=== PATIENT | male | born 1985 ===

== ENCOUNTER 2018-11-10 01:56 | Inpatient (IN) | payer MEDICAID ==
--- NOTE | 2018-11-10 02:41 | ED PDOC ---
Arrival/HPI - General Chief Complaint: Psychiatric Evaluation Time Seen by Provider: 11/10/18 01:58 Historian: Patient - History of Present Illness Narrative History of Present Illness (Text): 11/10/18 02:40 A 33 year old male with no significant past medical history, who presents to the ED for pain and swelling in left hand after he punched a wall in anger. Patient notes that he found out his girlfriend was cheating on him. Patient expresses suicidal and homicidal ideation. He notes that he wants to shoot himself with a gun. Patient denies fevers, chills, headache, dizziness, chest pain, shortness of breath, dyspnea on exertion, cough, abdominal pain, nausea, vomiting, diarrhea, back pain, neck pain, urinary/bowel changes, or any other complaint. Time/Duration: 1-3 hours Symptom Onset: Gradual Symptom Course: Unchanged Activities at Onset: Emotional Upset Context: Home Past Medical History - Provider Review Nursing Documentation Reviewed: Yes - Psychiatric Hx Psychophysiologic Disorder: Yes Hx Depression: Yes Hx Substance Use: Yes Family/Social History - Physician Review Nursing Documentation Reviewed: Yes Family/Social History: Unknown Family HX Smoking Status: Heavy Smoker > 10 Cigarettes Daily Hx Alcohol Use: No Hx Substance Use: Yes Substance used: meth Allergies/Home Meds Allergies/Adverse Reactions: Allergies No Known Allergies Allergy (Verified 11/10/18 13:24) Home Medications: Home Meds Medication Instructions Recorded Confirmed QUEtiapine [SEROquel] 50 mg PO DAILY 11/11/18 11/11/18 Review of Systems - Physician Review All systems were reviewed & negative as marked: Yes - Review of Systems Constitutional: absent: Fevers Neurological: absent: Headache Physical Exam - Physical Exam Narrative Physical Exam (Text): 11/10/18 02:45 Constitutional: No acute distress. Head: Normocephalic. Atraumatic. Eyes: PERRL. ENT: Moist mucous membranes. Neck: Supple. Cardiovascular: Regular rate. Chest: No tenderness. Respiratory: Clear to auscultation bilaterally. GI: Soft. Nontender. Nondistended. Back: No CVA tenderness. Musculoskeletal: Edema in second and third MCP Skin: No rash. Neurologic: Alert, no focal deficit. Vital Signs Reviewed: Yes Vital Signs Temp Pulse Resp BP Pulse Ox 11/10/18 02:16 97.5 F L 86 18 102/77 100 Temperature: Afebrile Blood Pressure: Normal Pulse: Regular Respiratory Rate: Normal Appearance: Positive for: Well-Appearing, Non-Toxic, Comfortable Pain Distress: Mild Mental Status: Positive for: Alert and Oriented X 3 Medical Decision Making ED Course and Treatment: 11/10/18 02:49 Impression: 33 year old male who presents to the ED for pain and swelling in the left hand expressing suicidal/homicidal ideation. Plan: -- EKG -- Labs -- Chest X-ray -- Left Hand X-ray -- Urinalysis -- Reassess and disposition Prior Visits: Notes and results from previous visits were reviewed. Progress Notes: EKG: NSR at [address] wave changes. 11/10/18 03:45 Left Hand X-ray reviewed, shows no fracture. - RAD Interpretation Radiology Orders: 11/10/18 02:21 HAND LEFT 3 VIEWS ROUTINE [RAD] Stat 11/10/18 02:22 CHEST PORTABLE [RAD] Stat - Scribe Statement The provider has reviewed the documentation as recorded by the Patricia Carr training under Bonny Garduno Provider Scribe Attestation: All medical record entries made by the Scribe were at my direction and personally dictated by me. I have reviewed the chart and agree that the record accurately reflects my personal performance of the history, physical exam, medical decision making, and the department course for this patient. I have also personally directed, reviewed, and agree with the discharge instructions and disposition. Disposition/Present on Arrival - Present on Arrival Any Indicators Present on Arrival: No History of DVT/PE: No History of Uncontrolled Diabetes: No Urinary Catheter: No History of Decub. Ulcer: No History Surgical Site Infection Following: None - Disposition Have Diagnosis and Disposition been Completed?: Yes Diagnosis: Depression Disposition: HOSPITALIZED Disposition Time: 07:00 Patient Plan: Admission Condition: GUARDED
[2018-11-10 02:47] LABS: ACETAMINOPHEN < 10.0 ug/ml (10.0-20.0); ALT/SGPT 27 U/L (7-56); AST/SGOT 33 U/L (17-59); BLOOD UREA NITROGEN 20 mg/dL (7-21); CALCIUM 8.9 mg/dL (8.4-10.5); GFR NON-AFRICAN AMERICAN > 60; SALICYLATE < 1 mg/dL (2.0-20.0)
[2018-11-10 03:01] LABS: BASO # 0.03 K/mm3 (0.0-2.0); BASO % 0.3 % (0.0-3.0); EOS # 0.3 (0.0-0.7); EOS % 3.3 % (1.5-5.0); LYMPH % 28.7 % (22.0-35.0); MEAN CELL VOLUME 91.4 fl (80.0-105.0); MEAN CORPUSCULAR HEMOGLOBIN 30.5 pg (25.0-35.0); MEAN CORPUSCULAR HGB CONC 33.4 g/dl (31.0-37.0); MEAN PLATELET VOLUME 9.4 fl (7.0-11.0); MONO # 0.9 (0.1-0.6); MONO % 8.3 % (1.0-6.0); RBC 4.91 10^6/uL (3.5-6.1); RED CELL DISTRIBUTION WIDTH 13.8 % (11.5-14.5); WHITE BLOOD COUNT 10.4 10^3/uL (4.5-11.0)
[2018-11-10 04:23] LABS: URINE BILIRUBIN NEGATIVE (NEGATIVE); URINE BLOOD NEGATIVE (NEGATIVE); URINE GLUCOSE (UA) NEGATIVE (NEGATIVE); URINE LEUKOCYTE ESTERASE NEGATIVE Leu/uL (NEGATIVE); URINE PROTEIN TRACE mg/dL (<30 mg/dL)
[2018-11-10 04:24] LABS: URINE APPEARANCE CLEAR (CLEAR); URINE COLOR YELLOW (YELLOW)
[2018-11-10 04:29] LABS: URINE BACTERIA FEW /hpf; URINE EPITHELIAL CELLS 0 - 2 /hpf (0-5); URINE WBC 0 - 2 /hpf (0-6)
[2018-11-10 04:48] LABS: BARBITURATES, UR NEGATIVE (NEGATIVE)
[2018-11-10 05:03] LABS: BENZODIAZEPINES, UR POSITIVE (NEGATIVE); OPIATES, UR NEGATIVE (NEGATIVE); PHENCYCLIDINE, UR POSITIVE (NEGATIVE)
[2018-11-10] MEDS ORDERED: DiphenhydrAMINE 50 mg/ml Inj IM PRN (10:23)
[2018-11-10] MEDS ORDERED: Alum-Mag Hydrox-Simethicone Susp (30 mL) PO PRN (10:25)
--- NOTE | 2018-11-10 11:04 | RAD ---
Date of service: 11/10/2018 PROCEDURE: CHEST RADIOGRAPH, 1 VIEW HISTORY: si/hi COMPARISON: None available. FINDINGS: LUNGS: Clear. PLEURA: No pneumothorax or pleural fluid seen. CARDIOVASCULAR: No aortic atherosclerotic calcification present. Normal. OSSEOUS STRUCTURES: No significant abnormalities. VISUALIZED UPPER ABDOMEN: Normal. OTHER FINDINGS: None. IMPRESSION: No active disease.
--- NOTE | 2018-11-10 12:29 | RAD ---
PROCEDURE: Left Hand Radiographs. HISTORY: hand pain, punched wall COMPARISON: None. TECHNIQUE: Four views obtained. FINDINGS: BONES: Normal. No fracture. JOINTS: Normal. No osteoarthritic changes. SOFT TISSUES: Normal. OTHER FINDINGS: None. IMPRESSION: Normal left hand radiographs.
--- NOTE | 2018-11-10 17:36 | CARD ---
APPROVED REPORT Date of service: 11/10/2018 EKG Measurement Heart [id number] <Conclusion> Normal sinus rhythm Early reporlarization pattern; a normal variant Normal ECG
[2018-11-10 21:23] VITALS: O2SAT 95
[2018-11-10 21:24] VITALS: BMI 26.4
[2018-11-10] MEDS ORDERED: QUEtiapine 150 mg XR Tab PO SCH (22:00)
[2018-11-10] MEDS: QUEtiapine 50 mg XR Tab PO SCH (23:08)
--- NOTE | 2018-11-11 16:08 | PCM.PSYCH ---
Initial Psychiatric Evaluation - Initial Psychiatric Evaluation Type of Admission: Voluntary Legal Status: Capacity Chief Complaint (in patient's own words): "I do not even remember how I ended up here" Patient's Reaction to Hospitalization: Patient was admitted for evaluation of depressive symptoms and possible suicidal ideation. History of Present Illness and Precipitating Events: Shortly, pt is a 33 year old male with history of polysubstance abuse and dependence, follow-up possible antisocial personality disorder, patient has history of being admitted to the psychiatric inpatient unit most recently was in [facility], patient was discharged on 11/04/2018, patient has history of not compliant with her medications and follow-up appointments, stronger antisocial personality disorder, history of incarcerations and arrests, in the emergency room verbalized thoughts of harming himself with a plan to gunshot himself, patient required further evaluation, stabilization, medications adjustment. Patient was seen and examined at the treatment team meeting, patient presented to be drowsy, seems to be poor and unreliable historian, poor personal hygiene, fair ADLs, has scratches on his neck and patient complaining of pain on his left wrist status post punching a wall (x-ray of the hand done 11/09/2018. Patient seems to be unreliable historian, reported that she does not remember how he ended up here in the hospital, orders being not depressed, patient denied thoughts of harming himself or others, denied any psychotic symptoms, but based on RN report voices were male and say theyre gonna come get me. . Patient requested to be discharged immediately, patient submitted 48-hour notice. In the emergency room patient reported that he found out that his girlfriend was cheating on him, when this senior mortgage underwriter asked him today patient said "it was opposite, I cheated on her", she does not remember his statement about his gunshot, patient said "I was intoxicated, I do not even remember saying things". Patient denied any access to the guns. Urine drug screen was positive for PCP, cocaine, marijuana, benzos. Patient required Haldol and Ativan to be given to him overnight. Patient denies smoking. Past psychiatric history: Patient was discharged from [facility] 11/04/18, patient has history of being admitted to [facility]. 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 Was prescribed: Divalproex [Depakote DR] 250 mg PO BID #60 tcp Haloperidol [Haldol] 5 mg PO BID #60 tab Medical history: Unknown Family history: Unknown 11/10/18 02:27 11/10/18 02:27 Lab Results 11/10/18 04:08: Urine Opiates Screen Negative, Urine Methadone Screen Negative, Ur Barbiturates Screen Negative, Ur Phencyclidine Scrn Positive H, Ur Amphetamines Screen Negative, U Benzodiazepines Scrn Positive H, U Oth Cocaine Metabols Positive H, U Cannabinoids Screen Positive H 11/10/18 04:08: Urine Color Yellow, Urine Appearance Clear, Urine pH 6.0, Ur Specific [place] >= 1.030, Urine Protein Trace H, Urine Glucose (UA) Negative, Urine Ketones Trace H, Urine Blood Negative, Urine Nitrate Negative, Urine Bilirubin Negative, Urine Urobilinogen 1.0 H, Ur Leukocyte Esterase Negative, Urine RBC None, Urine WBC 0 - 2, Ur Epithelial Cells 0 - 2, Urine Bacteria Few 11/10/18 02:27: Alcohol, Quantitative < 10 11/10/18 02:27: Salicylates < 1 L, Acetaminophen < 10.0 L 11/10/18 02:27: Sodium 142, Potassium 3.8, Chloride 102, Carbon Dioxide 32, Anion Gap 12, BUN 20, Creatinine 1.2, Est GFR ( Amer) > 60, Est GFR (Non- Af Amer) > 60, Random Glucose 85, Calcium 8.9, Total Bilirubin 0.4, AST 33, ALT 27, Alkaline Phosphatase 81, Total Protein 8.0, Albumin 4.0, Globulin 4.0, Albumin/Globulin Ratio 1.0 L 11/10/18 02:27: WBC 10.4, RBC 4.91, Hgb 15.0, Hct 44.9, MCV 91.4, MCH 30.5, MCHC 33.4, RDW 13.8, Plt Count 340, MPV 9.4, Neut % (Auto) 59.4, Lymph % (Auto) 28.7, Bureau % (Auto) 8.3 H, Eos % (Auto) 3.3, Baso % (Auto) 0.3, Lymph # (Auto) 3.0, Bureau # (Auto) 0.9 H, Eos # (Auto) 0.3, Baso # (Auto) 0.03, Absolute Neuts ( auto) 6.19 Vital Signs Temp Pulse Resp BP Pulse Ox 11/11/18 15:54 68 98/61 L 11/11/18 07:00 97.7 F 67 19 105/64 11/10/18 08:15 98.2 F 77 17 119/72 95 11/10/18 07:14 79 18 115/86 98 11/10/18 02:16 97.5 F L 86 18 102/77 100 The patient failed the outpatient lower level of care: Yes Current Medications: Active Medications Generic Name Dose Route Start Last Admin Trade Name Freq PRN Reason Stop Dose Admin Acetaminophen 650 mg 11/10/18 08:51 11/10/18 09:01 Tylenol 325mg Tab PO 650 mg Q6H PRN Administration Pain, moderate (4-7) Al Hydrox/Mg Hydrox/Simethicone 30 ml 11/10/18 10:25 Maalox Plus 30 Ml PO DAILY PRN Indigestion / Heartburn Diphenhydramine HCl 50 mg 11/10/18 08:50 11/10/18 23:09 Benadryl PO 50 mg Q6H PRN Administration Agitation Diphenhydramine HCl 50 mg 11/10/18 10:23 Benadryl IM Q6H PRN Agitation Haloperidol 5 mg 11/10/18 08:50 11/10/18 09:00 Haldol PO 5 mg Q6H PRN Administration Agitation Protocol Haloperidol Lactate 5 mg 11/10/18 10:24 Haldol IM Q6H PRN Agitation Protocol Lorazepam 2 mg 11/10/18 08:49 11/10/18 23:08 Ativan PO 2 mg Q6H PRN Administration Agitation Protocol Lorazepam 2 mg 11/10/18 10:22 Ativan IM Q6H PRN Agitation Protocol Quetiapine Fumarate 50 mg 11/10/18 16:00 11/10/18 17:02 Seroquel PO 50 mg BID SUSHMA Administration Quetiapine Fumarate 100 mg 11/10/18 22:00 11/10/18 23:08 Seroquel Xr PO 100 mg HS SUSHMA Administration Present on Admission - Present on Admission Any Indicators Present on Admission: No Review of Systems - Review of Systems Systems not reviewed;Unavailable: Acuity of Condition - Constitutional Constitutional: As Per HPI - EENT Eyes: As Per HPI Ears: As Per HPI Nose/Mouth/Throat: As Per HPI - Cardiovascular Cardiovascular: As Per HPI - Respiratory Respiratory: As Per HPI - Gastrointestinal Gastrointestinal: As Per HPI - Genitourinary Genitourinary: As Per HPI - Reproductive: Male Reproductive:Male: As Per HPI - Musculoskeletal Musculoskeletal: As Per HPI - Integumentary Integumentary: As Per HPI - Neurological Neurological: As Per HPI - Psychiatric Psychiatric: As Per HPI - Endocrine Endocrine: As Per HPI - Hematologic/Lymphatic Hematologic: As Per HPI Past Patient History - Past Psychiatric History Previous Treatment History: Inpatient Prior Professional Help: See HPI Prior Psychiatric Treatment: See HPI At what hospital: See HPI Duration: See HPI Nature of Treatment: See HPI - PSYCHIATRIC Hx Psychophysiologic Disorder: Yes Hx Depression: Yes Hx Substance Use: Yes - CARDIAC Hx Cardiac Disorders: No Hx Hypertension: No - PULMONARY Hx Tuberculosis: No - NEUROLOGICAL HX Cerebrovascular Accident: No Hx Seizures: No - HEMATOLOGICAL/ONCOLOGICAL Hx Cancer: No Hx Human Immunodeficiency Virus (HIV): No - GENITOURINARY/GYNECOLOGICAL Hx Sexually Transmitted Disorders: No - SURGICAL HISTORY Hx Surgeries: No - Medical/Surgical History Reviewed & confirmed: by nh Meds Allergies/Adverse Reactions: Allergies Allergy/AdvReac Type Severity Reaction Status Date / Time No Known Allergies Allergy Verified 11/10/18 13:24 Mental Status Examination - Personal Presentation Personal Presentation: Looks stated age - Affect Affect: Constricted, Flat - Motor Activity Motor Activity: Psychomotor Retardation - Reliability in Providing Information Reliability in Providing Information: Poor, due to alteration in thoughts, Poor, due to altered mood, Poor, due to cognitve impairment - Mood Mood: Depressed - Formal Thought Process Formal Thought Process: Delusions, Paranoia - Hallucinations/Delusions Delusions: Persecution - Obsessions/Compulsions Obsessions: None Compulsions: None - Cognitive Functions Orientation: Person, Place Sensorium: Alert Abstract Thinking: [place] Estimate of Intelligence: Below average Judgement: Intact, as evidence by: Insight regarding need for hospitalization - Risk Risk: Diminished functioning - Strength & Assets Inventory Strength & Assets Inventory: Cooperative - Limitations Limitations: Other (Chronic noncompliance with her medications and follow-up appointments) Psychiatric Physical Exam - Physical Exam Reviewed and confirmed: Emergency Department Physical Exam Results - Vital Signs Recent Vital Signs: Last Vital Signs Temp 97.7 F 11/11/18 07:00 Pulse 67 11/11/18 07:00 Resp 19 11/11/18 07:00 BP 105/64 11/11/18 07:00 Pulse Ox 95 11/10/18 08:15 - Labs Result Diagrams: 11/10/18 02:27 11/10/18 02:27 - EKG Data EKG Interpreted by: ER Physician DSM Plan - DSM 5 DSM 5 Diagnosis: Bipolar disorder most recent episode mixed severe with psychotic features as per history Cocaine use disorder severe as per history Methamphetamine use disorder severe as per history PCP use disorder moderate as per history Benzodiazepine abuse cannabis abuse - Recommended/Plan of Treatment Treatment Recommendations and Plan of Treatment: Milieu/structure/supportive therapy SW consultation for discharge plan and social issues, possible rehab Med management Seroquel 50 mg twice a day and 100 mg at the nighttime for mood stabilization and psychosis Remeron 15 mg at the nighttime for depression and insomnia Depakote for mood stabilization Family involvement Follow up on labs Will monitor closely Pt was educated about risk/benefits and alternatives of medications, coping strategies (safety plan, suicide prevention), relapse prevention, importance of follow up with psychiatrist and therapist, stay away from drugs/alcohol/smoking Patient submitted 48-hour notice, will consider to screen patient, will follow up closely Projected ELOS: 7 days Prognosis: Guarded Discharge Plan and Discharge Criteria: Patient will pose no imminent danger to self or others, will have safe discharge plan. - Tobacco Cessation Tobacco Use Status for the last 30 days: Non User Tobacco Use Treatment Practical Counseling Provided: No Tobacco Use Treatment FDA-Approved Cessation Medication Provided: No - Alcohol or Substance Abuse Does the patient have an Alcohol or Substance Abuse Disorder: Yes Initial Psych Certification - Initial Certification I certify that the inpatient psychiatric facility admission was medically necessary for either: Treatment which could reasonbly be expected to improve pt's condition I estimate of hospitalization is necessary for proper treatment of the patient: 7 Unit of Time: Days My plans for post-hospital care for this patient are: Inpatient rehab, dual diagnosis program.
[2018-11-11] MEDS: Divalproex 500 mg DR(BID formulation) PO SCH (17:18)
--- NOTE | 2018-11-11 17:54 | PCM.BM ---
<Bambi Amaya - Last Filed: 11/11/18 17:51> Treatment Plan Problems - Problems identified on initial assessmt INEFFECTIVE COPING SKILLS Date Initiated: 11/11/18 Time Initiated: 15:00 Assessment reference: NA Status: Active Priority: 1 HIGH RISK FOR VIOLENCE Date Initiated: 11/11/18 Time Initiated: 15:00 Assessment reference: NA Status: Active Priority: 2 ANXIETY R/T SUBSTANCE ABUSE Date Initiated: 11/11/18 Time Initiated: 15:00 Assessment reference: NA Status: Active Priority: 3 ALTERED THOUGHT PROCESS Date Initiated: 11/11/18 Time Initiated: 15:00 Assessment reference: NA Status: Active Priority: 4 Treatment assets and liabiliti Patient Assests: adapts well, cooperative, ADL independent, cognitively intact Patient Liabilities: financial problems - Milieu Protocol Maintain good personal hygiene: daily Encourage regular showers, daily Remind patient to perform daily oral care, daily Assist patient to perform ADL's Maintain personal safety: every shift Educate patient to report safety concerns to staff, every shift Monitor environment for contraband/sharps Medication safety: Monitor for expected outcome, potential side effects: every shift, Assess barriers to learning: every shift, Assess readiness for medication education: every shift Milieu Narrative: Milieu/structure/supportive therapy SW consultation for discharge plan and social issues, possible rehab Med management Seroquel 50 mg twice a day and 100 mg at the nighttime for mood stabilization and psychosis Remeron 15 mg at the nighttime for depression and insomnia Depakote for mood stabilization Family involvement Follow up on labs Will monitor closely Pt was educated about risk/benefits and alternatives of medications, coping strategies (safety plan, suicide prevention), relapse prevention, importance of follow up with psychiatrist and therapist, stay away from drugs/alcohol/smoking Patient submitted 48-hour notice, will consider to screen patient, will follow up closely Family Contact Family involvement: Famliy/SO not involved Discharge/Continuing Care - Education Needs Education Needs: Patient Medication, Patient Diagnosis/Disease Process, Patient Coping Skills, Patient Placement options, Patient Community resources, Patient Activities of Daily Living, Patient Pain, Patient Nutrition, Patient Health Practices/Safety, Patient Personal Hygiene/Grooming, Patient Aftercare Safety Plan - Discharge Discharge Criteria: Tolerates medication w/o severe side effects, Free of Suicidal thoughts, Free of paranoid thoughts, Free of agitation, Ability to care for self, No longer exhibiting s/s of withdrawal, Reduction of target symptoms Discharge to:: Home - Treatment Team Participation Patient/Family/SO Statement: Milieu/structure/supportive therapy SW consultation for discharge plan and social issues, possible rehab Med management Seroquel 50 mg twice a day and 100 mg at the nighttime for mood stabilization and psychosis Remeron 15 mg at the nighttime for depression and insomnia Depakote for mood stabilization Family involvement Follow up on labs Will monitor closely Pt was educated about risk/benefits and alternatives of medications, coping strategies (safety plan, suicide prevention), relapse prevention, importance of follow up with psychiatrist and therapist, stay away from drugs/alcohol/smoking Patient submitted 48-hour notice, will consider to screen patient, will follow up closely <Saundra James - Last Filed: 11/12/18 10:32> Treatment Plan Problems - Problems identified on initial assessmt INEFFECTIVE COPING SKILLS Date Initiated: 11/11/18 Time Initiated: 15:00 Assessment reference: NA Status: Active Priority: 1 HIGH RISK FOR VIOLENCE Date Initiated: 11/11/18 Time Initiated: 15:00 Assessment reference: NA Status: Active Priority: 2 ANXIETY R/T SUBSTANCE ABUSE Date Initiated: 11/11/18 Time Initiated: 15:00 Assessment reference: NA Status: Active Priority: 3 ALTERED THOUGHT PROCESS Date Initiated: 11/11/18 Time Initiated: 15:00 Assessment reference: NA Status: Active Priority: 4 VISUAL HALLUCINATION Date Initiated: 11/11/18 Time Initiated: 15:00 Assessment reference: NA Status: Active Priority: 3 SELF CARE DEFICIT Date Initiated: 11/11/18 Time Initiated: 15:00 Assessment reference: NA Status: Active Priority: 4
[2018-11-11] MEDS: QUEtiapine 50 mg XR Tab PO SCH (21:55)
[2018-11-12 07:21] VITALS: BP 117/75; PULSE 65; RESP 20; TEMP 97.9
--- NOTE | 2018-11-12 09:00 | PCM.PYCHPN ---
Psychiatric Progress Note - Psychiatric Progress Note Patient seen today, length of contact: 30min Patient Chief Complaint: "I do not even remember how I ended up here" Problems Identified/Issues Discussed: 48hr notice, drug abuse, unit rules and regulations, medications. Medical Problems: see HPI Diagnostic Results: 11/10/18 02:27 11/10/18 02:27 Lab Results 11/10/18 04:08: Urine Opiates Screen Negative, Urine Methadone Screen Negative, Ur Barbiturates Screen Negative, Ur Phencyclidine Scrn Positive H, Ur Amphetamines Screen Negative, U Benzodiazepines Scrn Positive H, U Oth Cocaine Metabols Positive H, U Cannabinoids Screen Positive H 11/10/18 04:08: Urine Color Yellow, Urine Appearance Clear, Urine pH 6.0, Ur Specific [place] >= 1.030, Urine Protein Trace H, Urine Glucose (UA) Negative, Urine Ketones Trace H, Urine Blood Negative, Urine Nitrate Negative, Urine Bilirubin Negative, Urine Urobilinogen 1.0 H, Ur Leukocyte Esterase Negative, Urine RBC None, Urine WBC 0 - 2, Ur Epithelial Cells 0 - 2, Urine Bacteria Few 11/10/18 02:27: Alcohol, Quantitative < 10 11/10/18 02:27: Salicylates < 1 L, Acetaminophen < 10.0 L 11/10/18 02:27: Sodium 142, Potassium 3.8, Chloride 102, Carbon Dioxide 32, Anion Gap 12, BUN 20, Creatinine 1.2, Est GFR ( Amer) > 60, Est GFR (Non- Af Amer) > 60, Random Glucose 85, Calcium 8.9, Total Bilirubin 0.4, AST 33, ALT 27, Alkaline Phosphatase 81, Total Protein 8.0, Albumin 4.0, Globulin 4.0, Albumin/Globulin Ratio 1.0 L 11/10/18 02:27: WBC 10.4, RBC 4.91, Hgb 15.0, Hct 44.9, MCV 91.4, MCH 30.5, MCHC 33.4, RDW 13.8, Plt Count 340, MPV 9.4, Neut % (Auto) 59.4, Lymph % (Auto) 28.7, [place] % (Auto) 8.3 H, Eos % (Auto) 3.3, Baso % (Auto) 0.3, Lymph # (Auto) 3.0, [place] # (Auto) 0.9 H, Eos # (Auto) 0.3, Baso # (Auto) 0.03, Absolute Neuts (auto) 6.19 Vital Signs Temp Pulse Resp BP Pulse Ox 11/12/18 07:20 97.9 F 65 20 117/75 11/11/18 15:54 68 98/61 L 11/11/18 07:00 97.7 F 67 19 105/64 11/10/18 08:15 98.2 F 77 17 119/72 95 11/10/18 07:14 79 18 115/86 98 11/10/18 02:16 97.5 F L 86 18 102/77 100 DSM 5 Symptoms Update: Shortly, pt is a 33 year old male with history of polysubstance abuse and dependence, follow-up possible antisocial personality disorder, patient has history of being admitted to the psychiatric inpatient unit most recently was in [facility], patient was discharged on 11/04/2018, patient has history of not compliant with her medications and follow-up appointments, stronger antisocial personality disorder, history of incarcerations and arrests, in the emergency room verbalized thoughts of harming himself with a plan to gunshot himself, patient required further evaluation, stabilization, medications adjustment. Patient was seen and examined as per report from the nursing staff, pt is loud, threatening to harm his roommate, demanding, needs constant redirections. in ED pt verbalized thoughts of harming self by a gunshot, but pt refuse to elaborate further, pt said that he does not remember saying such things, but in ED pt said that he has an access to gun. pt denied psychotic symptoms but as per initial assessment pt said: voices were male and say theyre gonna come get me. Patient requested to be discharged 11/11/18, will initiate screening by [facility]. Urine drug screen was positive for PCP, cocaine, marijuana, benzos. DSM 5 Diagnosis: Bipolar disorder most recent episode mixed severe with psychotic features as per history Cocaine use disorder severe as per history Methamphetamine use disorder severe as per history PCP use disorder moderate as per history Benzodiazepine abuse cannabis abuse Medication Change: Yes Medical Record Reviewed: Yes (medications started 11/11/18) Consults ordered or reviewed: pt was seen by medical team in ED Mental Status Examination - Cognitive Function Orientation: Person, Place Memory: Intact Attention: Poor Concentration: Poor Association: WNL Fund of Knowledge: WNL - Mood Mood: Depressed - Affect Affect: Constricted, Flat - Formal Thought Process Formal Thought Process: Paranoia - Suicidal Ideation Suicidal Ideation: No - Homicidal Ideation Homicidal Ideation: No Goal/Treatment Plan - Goal/Treatment Plan Need for Continued Stay: Remain at risks for inpatient hospitalization, Severe depression anxiety, Discharge may exacerbated symptoms, Failed transitioning, Severe functional impairment Progress Toward Problem(s) and Goals/Treatment Plan: Milieu/structure/supportive therapy SW consultation for discharge plan and social issues, possible rehab Med management Seroquel 50 mg twice a day and 100 mg at the nighttime for mood stabilization and psychosis Remeron 15 mg at the nighttime for depression and insomnia Depakote 500mg po bid for mood stabilization Family involvement Follow up on labs Will monitor closely Pt was educated about risk/benefits and alternatives of medications, coping strategies (safety plan, suicide prevention), relapse prevention, importance of follow up with psychiatrist and therapist, stay away from drugs/alcohol/smoking Patient submitted 48-hour notice, pt was observed in the unit for the last 24h rs, pt still impulsive, threatening people, will initiate [facility] screening for involuntary commitment. Estimated Date of D/C: 11/14/18
[2018-11-12] MEDS: Divalproex 500 mg DR(BID formulation) PO SCH (10:11)
--- NOTE | 2018-11-13 15:30 | PCM.PYCHDC ---
Mental Status Examination - Mental Status Examination Orientation: Person, Place, Situation, Time Memory: Intact Mood: Neutral Affect: Constricted Speech: Appropriate Attention: Poor (Baseline) Concentration: Poor (Baseline) Association: WNL Fund of Knowledge: Poor (Baseline) Formal Thought Process: No Impairment Description of patient's judgement and insight: Limited his addiction problems, but fair judgment, patient came to the hospital looking for help. Psychotic Thoughts and Behaviors: Denied hearing voices, denies seeing things, ideations, patient does not present of the psychotic. Suicidal Ideation: No Current Homicidal Ideation?: No Plan: Patient adamantly denied loss of harming himself or others, denied intent or plan. Discharge Summary - Discharge Note Reason for Hospitalization: Patient was admitted for evaluation of depressive symptoms and possible suicidal ideation. Psychiatric History (includes Medical, Family, Personal Hx): See HPI Laboratory Data: 11/10/18 02:27 11/10/18 02:27 Lab Results 11/10/18 04:08: Urine Opiates Screen Negative, Urine Methadone Screen Negative, Ur Barbiturates Screen Negative, Ur Phencyclidine Scrn Positive H, Ur Amphetamines Screen Negative, U Benzodiazepines Scrn Positive H, U Oth Cocaine Metabols Positive H, U Cannabinoids Screen Positive H 11/10/18 04:08: Urine Color Yellow, Urine Appearance Clear, Urine pH 6.0, Ur Specific [place] >= 1.030, Urine Protein Trace H, Urine Glucose (UA) Negative, Urine Ketones Trace H, Urine Blood Negative, Urine Nitrate Negative, Urine Bilirubin Negative, Urine Urobilinogen 1.0 H, Ur Leukocyte Esterase Negative, Urine RBC None, Urine WBC 0 - 2, Ur Epithelial Cells 0 - 2, Urine Bacteria Few 11/10/18 02:27: Alcohol, Quantitative < 10 11/10/18 02:27: Salicylates < 1 L, Acetaminophen < 10.0 L 11/10/18 02:27: Sodium 142, Potassium 3.8, Chloride 102, Carbon Dioxide 32, Anion Gap 12, BUN 20, Creatinine 1.2, Est GFR ( Amer) > 60, Est GFR (Non- Af Amer) > 60, Random Glucose 85, Calcium 8.9, Total Bilirubin 0.4, AST 33, ALT 27, Alkaline Phosphatase 81, Total Protein 8.0, Albumin 4.0, Globulin 4.0, Albumin/Globulin Ratio 1.0 L 11/10/18 02:27: WBC 10.4, RBC 4.91, Hgb 15.0, Hct 44.9, MCV 91.4, MCH 30.5, MCHC 33.4, RDW 13.8, Plt Count 340, MPV 9.4, Neut % (Auto) 59.4, Lymph % (Auto) 28.7, [place] % (Auto) 8.3 H, Eos % (Auto) 3.3, Baso % (Auto) 0.3, Lymph # (Auto) 3.0, [place] # (Auto) 0.9 H, Eos # (Auto) 0.3, Baso # (Auto) 0.03, Absolute Neuts (auto) 6.19 Vital Signs Temp Pulse Resp BP Pulse Ox 11/12/18 07:20 97.9 F 65 20 117/75 11/11/18 15:54 68 98/61 L 11/11/18 07:00 97.7 F 67 19 105/64 11/10/18 08:15 98.2 F 77 17 119/72 95 11/10/18 07:14 79 18 115/86 98 11/10/18 02:16 97.5 F L 86 18 102/77 100 Consultations:: List each consultation separately and include: 1. Reason for request. 2. Findings. 3. Follow-up Consultations: pt was seen by medical team in ED, was medically stable. Summary of Hospital Course include:: 1. Description of specific treatment plan utilized for patients during their course of treatmen. 2. Summarize the time- course for resolution of acute symptoms and/or regressed behaviors. 3. Describe issues identified and worked on during hospitalization. 4. Describe medication utilized. 5. Describe medical problems identified and treated. 6. Reassessment of suicide risk Summary of Hospital Course: Shortly, pt is a 33 year old male with history of polysubstance abuse and dependence, follow-up possible antisocial personality disorder, patient has history of being admitted to the psychiatric inpatient unit most recently was in [facility], patient was discharged on 11/04/2018, patient has history of not compliant with her medications and follow-up appointments, stronger antisocial personality disorder, history of incarcerations and arrests, in the emergency room verbalized thoughts of harming himself with a plan to gunshot himself, patient required further evaluation, stabilization, medications adjustment. Please see admission note for more detailed information. During the treatment team meeting, patient saw our neurologist, discharge was requested. This tag writer requested [facility] screening for involuntary commitment. Patient was screened, was found to be not committable, at this point this tag writer had no other choice other than to discharge patient AGAINST MEDICAL ADVICE. At the time of discharge patient contracted for safety, denied any thoughts of harming herself or others, patient might benefit from further hospitalization but patient refused to stay in the hospital. At the time of the discharge patient pose no imminent danger to self or others, will be following up with psychiatrist of his choice, patient has ability to make that arrangement. It is a patient responsibility to follow up with outpatient clinic, PMD as well as specialists 11/10/18 02:27 11/10/18 02:27 Lab Results 11/10/18 04:08: Urine Opiates Screen Negative, Urine Methadone Screen Negative, Ur Barbiturates Screen Negative, Ur Phencyclidine Scrn Positive H, Ur Amphetamines Screen Negative, U Benzodiazepines Scrn Positive H, U Oth Cocaine Metabols Positive H, U Cannabinoids Screen Positive H 11/10/18 04:08: Urine Color Yellow, Urine Appearance Clear, Urine pH 6.0, Ur S pecific [place] >= 1.030, Urine Protein Trace H, Urine Glucose (UA) Negative, Urine Ketones Trace H, Urine Blood Negative, Urine Nitrate Negative, Urine Bilirubin Negative, Urine Urobilinogen 1.0 H, Ur Leukocyte Esterase Negative, Urine RBC None, Urine WBC 0 - 2, Ur Epithelial Cells 0 - 2, Urine Bacteria Few 11/10/18 02:27: Alcohol, Quantitative < 10 11/10/18 02:27: Salicylates < 1 L, Acetaminophen < 10.0 L 11/10/18 02:27: Sodium 142, Potassium 3.8, Chloride 102, Carbon Dioxide 32, Anion Gap 12, BUN 20, Creatinine 1.2, Est GFR ( Amer) > 60, Est GFR (Non- Af Amer) > 60, Random Glucose 85, Calcium 8.9, Total Bilirubin 0.4, AST 33, ALT 27, Alkaline Phosphatase 81, Total Protein 8.0, Albumin 4.0, Globulin 4.0, Albumin/Globulin Ratio 1.0 L 11/10/18 02:27: WBC 10.4, RBC 4.91, Hgb 15.0, Hct 44.9, MCV 91.4, MCH 30.5, MCHC 33.4, RDW 13.8, Plt Count 340, MPV 9.4, Neut % (Auto) 59.4, Lymph % (Auto) 28.7, [place] % (Auto) 8.3 H, Eos % (Auto) 3.3, Baso % (Auto) 0.3, Lymph # (Auto) 3.0, [place] # (Auto) 0.9 H, Eos # (Auto) 0.3, Baso # (Auto) 0.03, Absolute Neuts (auto) 6.19 Vital Signs Temp Pulse Resp BP Pulse Ox 11/11/18 15:54 68 98/61 L 11/11/18 07:00 97.7 F 67 19 105/64 11/10/18 08:15 98.2 F 77 17 119/72 95 11/10/18 07:14 79 18 115/86 98 11/10/18 02:16 97.5 F L 86 18 102/77 100 - Diagnosis (1) Polysubstance dependence including opioid type drug without complication, episodic abuse Status: Chronic Priority: High (2) Antisocial personality disorder Status: Suspected Priority: High (3) Depression Status: Suspected Priority: Medium - Final Diagnosis (DSM 5) Condition upon Discharge: FAIR Disposition: AGAINST MEDICAL ADVICE Follow-up Treatment Plan: At the time of the discharge patient pose no imminent danger to self or others, will be following up with psychiatrist of his choice, patient has ability to make that arrangement. It is a [facility], [facility] as well as specialists - Smoking Cessation Smoking Cessation Medication prescribed: No Reason for not providing: Express no interest - Antipsychotic Medications Pt discharged on 2 or more routine antipsychotic medications: No
== END 2018-11-12 15:12 | disposition left against medical advice (07) | DRG 430 ==
LOC: ED 01:56 → ERH 06:56 → PSYC 08:48
PROVIDERS: ADMIT Psychiatry & Neurology Psychiatry; ATTEND Psychiatry & Neurology Psychiatry
DX: F31.64 Bipolar disorder, current episode mixed, severe, with psychotic features (principal); F14.90 Cocaine use, unspecified, uncomplicated; F13.10 Sedative, hypnotic or anxiolytic abuse, uncomplicated; F15.20 Other stimulant dependence, uncomplicated; F16.10 Hallucinogen abuse, uncomplicated; F12.10 Cannabis abuse, uncomplicated; F60.2 Antisocial personality disorder; G47.00 Insomnia, unspecified; R45.851 Suicidal ideations; R45.850 Homicidal ideations; Z79.899 Other long term (current) drug therapy; Z91.14 Patient's other noncompliance with medication regimen